=== PATIENT | female | born 2000 | race Asian ===

== ENCOUNTER 2020-08-03 13:18 | Day surgery (SDC) | payer OTHER ==
[2020-08-01 15:49] VITALS: BMI 32.5
[2020-08-03] MEDS ORDERED: GLYCOPYRROLATE 0.2 MG/1 ML VIAL ONE (14:20)
[2020-08-03] MEDS ORDERED: LIDOCAINE HCL/PF 2% SDV 5ML VIAL ONE (14:20)
[2020-08-03] MEDS ORDERED: MIDAZOLAM HCL 2 MG/2 ML SINGLE DOSE VIAL ONE ×3 (14:21→14:54)
[2020-08-03] MEDS ORDERED: PROMETHAZINE HCL 25 MG/1 ML VIAL IVPUSH PRN (14:26)
[2020-08-03] MEDS ORDERED: ONDANSETRON 4 MG/2 ML VIAL IVPUSH PRN (14:26)
[2020-08-03] MEDS ORDERED: oxyCODONE HCL 5 MG TABLET PO PRN ×2 (14:26)
[2020-08-03] MEDS ORDERED: LIDOCAINE 1%/EPI 1:100000 (20 ML MULTI DOSE VIAL) ONE (14:34)
[2020-08-03] MEDS ORDERED: ceFAZolin SODIUM 1 GM VIAL ONE (15:09)
[2020-08-03 16:10] VITALS: BP 128/76; PULSE 84; TEMP 97.9
== END 2020-08-03 16:10 | disposition home or self-care (01) ==
LOC: FASU 13:18
PROVIDERS: ATTEND Surgery Plastic and Reconstructive Surgery
PROC: 0HB2XZZ Excision of Right Ear Skin, External Approach (ICD-10-PCS; 2020-08-03)
PROC: 0HQ2XZZ Repair Right Ear Skin, External Approach (ICD-10-PCS; principal; 2020-08-03 14:57)
DX: L91.0 Hypertrophic scar (principal)
CPT/HCPCS: 84703; 88304-TC